=== PATIENT | female | born 1945 | race Caucasian/White ===

== ENCOUNTER 2019-08-05 11:51 | Emergency (ER) | payer MEDICARE, BC ==
[~2019-08-05] VITALS: Ht 154.9 cm; Wt 79.4 kg
[2019-08-05] MEDS ORDERED: ASA81BEC PO (12:06)
[2019-08-05] MEDS ORDERED: SIMVASTATIN80 MG PO (12:06)
[2019-08-05] MEDS ORDERED: AMLODIPINE-OLM1 EACH PO (12:06)
[2019-08-05 12:44] LABS: HEMATOCRIT 39.3 % (37.0-47.0); HEMOGLOBIN 13.7 gm/dL (12.0-15.0); MCH 29.9 pg (26.0-34.0); MCHC 34.9 g/dL (28.0-37.0); MCV 85.6 fL (80.0-100.0); MPV 10.5 fl. (7.2-11.1); RBC 4.59 mil/uL (4.20-5.00); RDW-CV 14.4 % (10.5-14.5); WBC 6.4 thou/uL (4.0-11.0)
[2019-08-05 13:06] VITALS: BP 149/81
== END 2019-08-05 13:11 | disposition home or self-care (01) ==
LOC: M.ERS 11:51
PROVIDERS: Emergency Medicine Emergency Medical Services
DX: R04.0 Epistaxis (principal); I10 Essential (primary) hypertension; E78.00 Pure hypercholesterolemia, unspecified; Z79.82 Long term (current) use of aspirin; Z79.899 Other long term (current) drug therapy

== ENCOUNTER 2019-08-06 09:00 | Emergency (ER) | payer MEDICARE, BC ==
[~2019-08-06] VITALS: Ht 154.9 cm; Wt 79.4 kg
[~2019-08-06 09:00] MED LIST: AMLODIPINE-OLM1 EACH PO; ASA81BEC PO; SIMVASTATIN80 MG PO
[2019-08-06 10:03] VITALS: BP 135/79
== END 2019-08-06 10:04 | disposition home or self-care (01) ==
LOC: M.ERS 09:00
DX: R04.0 Epistaxis (principal); I10 Essential (primary) hypertension; E78.00 Pure hypercholesterolemia, unspecified

== ENCOUNTER 2019-08-07 16:00 | Emergency (ER) | payer MEDICARE, BC ==
[~2019-08-07] VITALS: Ht 154.9 cm; Wt 77.1 kg
[2019-08-07 16:12] VITALS: BP 147/79
== END 2019-08-07 17:19 | disposition home or self-care (01) ==
LOC: M.ERS 16:00
DX: R04.0 Epistaxis (principal); I10 Essential (primary) hypertension; E78.00 Pure hypercholesterolemia, unspecified; Z88.2 Allergy status to sulfonamides

== ENCOUNTER 2019-08-07 23:27 | Emergency (ER) | payer MEDICARE, BC ==
[~2019-08-07] VITALS: Ht 154.9 cm; Wt 77.1 kg
[2019-08-08 01:23] VITALS: BP 151/91
== END 2019-08-08 01:23 | disposition home or self-care (01) ==
LOC: M.ERS 23:27
DX: R04.0 Epistaxis (principal); I10 Essential (primary) hypertension; E78.00 Pure hypercholesterolemia, unspecified; Z88.2 Allergy status to sulfonamides